=== PATIENT | male | born 2000 ===

== ENCOUNTER → 2024-07-26 | Outpatient (CLI) | payer OTHER ==
--- NOTE | 2024-07-26 13:26 | XR ---
EXAMINATION TYPE: XR tibia fibula RT DATE OF EXAM: 07/26/2024 1:13 PM INDICATION: Patient age:Male; 23 years old; Reason for study: S80.11XA CONTUSION OF RIGHT LOWER LEG, INITIAL ENC; [facility]. COMPARISON: None TECHNIQUE: The right tibia/fibula was examined in AP and lateral projections. 2 view. FINDINGS: No evidence of any acute osseous pathology, joint dislocation, or soft tissue swelling is n oted. No radiopaque foreign body. IMPRESSION: No evidence of acute fracture. [facility], , 07/26/2024 1:24 PM
== END | disposition home or self-care (01) ==
LOC: RADXRMAIN 12:45
PROVIDERS: ATTEND Emergency Medicine
DX: S80.11XA Contusion of right lower leg, initial encounter (principal)